=== PATIENT | female | born 1990 | race Hispanic/Latino ===

== ENCOUNTER → 2019-06-06 | Outpatient (CLI) | payer OTHER ==
[2019-06-06 14:06] LABS: BASOPHILS % (AUTO) 0.3 % (0.0-5.0); EOSINOPHILS % (AUTO) 0.3 % (0.0-8.0); HEMATOCRIT 35.1 % (36-48); LYMPHOCYTES % (AUTO) 26.2 % (21.0-51.0); MEAN CORPUSCULAR HGB CONC 33.3 g/dL (32.0-36.0); MEAN CORPUSCULAR VOLUME 92.9 fL (79-99); MONOCYTES % (AUTO) 6.9 % (3.0-13.0); PLATELET COUNT (AUTO) 248 K/uL (130-400); RED BLOOD CELL COUNT(AUTO) 3.78 MIL/uL (4.00-5.50); RED CELL DISTRIBUTION WIDTH 12.2 % (11.0-15.5); WHITE BLOOD COUNT (AUTO) 7.6 K/uL (4.8-10.8)
== END | disposition home or self-care (01) ==
LOC: RAH 13:24
PROVIDERS: ATTEND Orthopaedic Surgery
DX: D50.9 Iron deficiency anemia, unspecified (principal); M50.30 Other cervical disc degeneration, unspecified cervical region
CPT/HCPCS: 36415; 72040; 85025